=== PATIENT | female | born 1990 | race Caucasian/White ===

== ENCOUNTER → 2020-12-12 09:45 | Outpatient (BNVA) | payer OTHER, SELFPAY | PROVIDERS: Family Provider Family Medicine; PCP Family Medicine; Visit Provider Nurse Practitioner Women's Health | DX: Z01.419 Encounter for gynecological examination (general) (routine) without abnormal findings (principal); Z78.9 Other specified health status | CPT/HCPCS: 86762; 86787; 88175 ==

== ENCOUNTER 2021-04-04 08:24 | Outpatient (CLI) | payer SELFPAY ==
--- NOTE | 2021-04-04 08:32 | US_ITS ---
WS: [id number] ULTRASOUND PELVIS TECHNIQUE: Transvaginal. CLINICAL INFORMATION: ENDOMETRIAL THICKNESS LMP: : No. COMPARISON: None. FINDINGS: Cervix is long and closed. Uterus Orientation: Anteverted. Size: 6.8 x 3.3 x 4.5 cm Masses: None. Cervix: Normal. Endometrium: Small amount of fluid in the endometrial canal. Endometrium thickness: 0.4 cm. Adnexa: Left ovarian cyst measuring 2.1 x 1.9 x 1.3 cm Right ovary size: 3.5 x 1.9 x 3.3 cm. Left ovary size: 3.3 x 2.4 x 2.6 cm. 8 left ovarian follicles. 12 right ovarian follicles. Free fluid: None. Other findings: None. US/US transvaginal [id number] IMPRESSION: 1. Endometrium measures 4.1 mm. Small amount of fluid in the endometrial canal . 2. 8 LEFT OVARIAN FOLLICLES. 12 RIGHT OVARIAN FOLLICLES. 3. LARGEST LEFT OVARIAN FOLLICLE MEASURES 7.4 X 8.2 X 5.[address] OVARIAN CY ST MEASURES 2.1 X 1.9 X 1.3 CM 4. LARGEST RIGHT OVARIAN FOLLICLE MEASURES 8.8 X 5.1 8.9 MM
[2021-04-04 12:54] LABS: Estradiol. 55.3 pg/mL; Luteinizing Hormone 2.2 mIU/mL (0.5-41.7); Progesterone 0.214 ng/mL
== END 2021-04-04 08:25 | disposition home or self-care (01) ==
LOC: US 08:28
PROVIDERS: PCP Family Medicine; Visit Provider Obstetrics & Gynecology Reproductive Endocrinology
DX: Z31.9 Encounter for procreative management, unspecified (principal)
CPT/HCPCS: 36415; 76830; 82670; 83002; 84144; 84702

== ENCOUNTER 2021-04-11 07:58 | Outpatient (CLI) | payer SELFPAY ==
--- NOTE | 2021-04-11 08:09 | US_ITS ---
WS: [id number] TRANSVAGINAL PELVIC ULTRASOUND HISTORY: FOLLICLES COMPARISON: None available. Uterus: 7.4 cm x 4.2 cm x 3.0 cm. Normal size anteverted uterus. No fibroid or mass. Endometrium: 0.6 cm. Normal trilaminar appearance of the endometrium. There is a small amount of flui d along the endometrial canal. Right ovary: 3.4 cm x 2.4 cm x 1.9 cm. Normal size ovary with numerous small follicles. The largest f ollicle measures 1.6 x 1.4 x 1.6 cm. There are greater than 10 follicles present. Left ovary: 3.1 cm x 1.8 cm x 2.4 cm. Normal size ovary with multiple follicles. Greater than 10 foll icles present. The largest follicle measures 0.7 x 0.7 x 0.7 cm. No free fluid. US/US transvaginal [id number] IMPRESSION: 1. Trilaminar endometrium. 2. Multiple follicles RIGHT ovary with the largest measuring 1.6 x 1.4 x 1.6 c m. 3. Multiple follicles LEFT ovary with the largest measuring 0.7 x 0.7 x 0.7 cm .
[2021-04-11 10:02] LABS: Luteinizing Hormone 2.5 mIU/mL (0.5-41.7); Progesterone 0.172 ng/mL
[2021-04-11 11:19] LABS: Estradiol. 135.4 pg/mL
== END 2021-04-11 07:59 | disposition home or self-care (01) ==
PROVIDERS: PCP Family Medicine; Visit Provider Obstetrics & Gynecology Reproductive Endocrinology
DX: Z31.9 Encounter for procreative management, unspecified (principal)
CPT/HCPCS: 36415; 76830; 82670; 83002; 84144

== ENCOUNTER 2021-04-16 09:03 | Outpatient (CLI) | payer SELFPAY ==
[2021-04-16 12:38] LABS: Estradiol 299.5 pg/mL; Progesterone 1.19 ng/mL
== END 2021-04-16 09:04 | disposition home or self-care (01) ==
PROVIDERS: PCP Family Medicine; Visit Provider Obstetrics & Gynecology Reproductive Endocrinology
DX: Z31.9 Encounter for procreative management, unspecified (principal)
CPT/HCPCS: 36415; 82670; 83002; 84144

== ENCOUNTER 2021-04-18 08:07 | Outpatient (CLI) | payer SELFPAY ==
--- NOTE | 2021-04-18 08:30 | US_ITS ---
WS: [id number] ULTRASOUND PELVIS TECHNIQUE: Transvaginal. CLINICAL INFORMATION: FOLLICLES LMP: April 02, 2021 : No. COMPARISON: April 16, 2021 FINDINGS: Uterus Orientation: Anteverted. Size: 7.7 x 3.8 x 4.2 cm Masses: None. Cervix: Normal. Endometrium: Trilaminar endometrium Endometrium thickness: 10.6 mm. Adnexa: Normal. Right ovary size: 3.5 x 2.1 x 2.5 cm. Left ovary size: 2.7 x 2.0 x 2.1 cm. Numerous bilateral ovarian follicles. 7 right-sided follicles and 7 left-sided follicles measured. Largest right-sided follicle measures 1.1 x 1.7 x 1.5 cm Largest left-sided follicle measures 0.8 x 0.7 x 0.8 cm Free fluid: None. Other findings: None. US/US transvaginal [id number] IMPRESSION: 1. Endometrium measures 10.6 mm 2. Largest right-sided follicle measures 1.1 x 1.7 x 1.5 cm 3. Largest left-sided follicle measures 0.8 x 0.7 x 0.8 cm 4. Numerous smaller peripheral follicles measured bilaterally
[2021-04-18 10:25] LABS: Estradiol 49.9 pg/mL; Luteinizing Hormone 4.3 mIU/mL (0.5-41.7); Progesterone 18.92 ng/mL
== END 2021-04-18 08:08 | disposition home or self-care (01) ==
LOC: RAD 08:16
PROVIDERS: PCP Family Medicine; Visit Provider Obstetrics & Gynecology Reproductive Endocrinology
DX: Z31.9 Encounter for procreative management, unspecified (principal); N83.02 Follicular cyst of left ovary; N83.01 Follicular cyst of right ovary
CPT/HCPCS: 36415; 76830; 82670; 83002; 84144

== ENCOUNTER 2021-04-29 08:01 | Outpatient (CLI) | payer SELFPAY ==
[2021-04-29 08:59] LABS: Estradiol 174.2 pg/mL
== END 2021-04-29 08:02 | disposition home or self-care (01) ==
PROVIDERS: PCP Family Medicine; Visit Provider Obstetrics & Gynecology Reproductive Endocrinology
DX: Z31.9 Encounter for procreative management, unspecified (principal)
CPT/HCPCS: 36415; 82670; 84144

== ENCOUNTER 2021-05-06 08:39 | Outpatient (CLI) | payer SELFPAY ==
[2021-05-06 09:33] LABS: Estradiol 53.8 pg/mL; Progesterone 9.19 ng/mL
== END 2021-05-06 08:40 | disposition home or self-care (01) ==
PROVIDERS: PCP Family Medicine; Visit Provider Obstetrics & Gynecology Reproductive Endocrinology
DX: Z31.9 Encounter for procreative management, unspecified (principal)
CPT/HCPCS: 82670; 84144; 84702

== ENCOUNTER 2021-05-10 08:52 | Outpatient (CLI) | payer SELFPAY ==
[2021-05-10 09:46] LABS: Estradiol 56.1 pg/mL; Luteinizing Hormone 3.3 mIU/mL (0.5-41.7); Progesterone 0.116 ng/mL
== END 2021-05-10 08:53 | disposition home or self-care (01) ==
LOC: LAB 08:57
PROVIDERS: PCP Family Medicine; Visit Provider Obstetrics & Gynecology Reproductive Endocrinology
DX: Z31.9 Encounter for procreative management, unspecified (principal)
CPT/HCPCS: 36415; 82670; 83002; 84144

== ENCOUNTER 2021-05-22 07:25 | Outpatient (CLI) | payer SELFPAY ==
[2021-05-22 08:41] LABS: Estradiol 174.7 pg/mL; Luteinizing Hormone 9.4 mIU/mL (0.5-41.7); Progesterone 0.333 ng/mL
== END 2021-05-22 07:26 | disposition home or self-care (01) ==
PROVIDERS: PCP Family Medicine; Visit Provider Obstetrics & Gynecology Reproductive Endocrinology
DX: Z31.9 Encounter for procreative management, unspecified (principal)
CPT/HCPCS: 36415; 82670; 83002; 84144

== ENCOUNTER 2021-05-28 07:02 | Outpatient (CLI) | payer SELFPAY ==
[2021-05-28 11:09] LABS: Estradiol 199.9 pg/mL; Luteinizing Hormone 19.8 mIU/mL (0.5-41.7); Progesterone 0.121 ng/mL
== END 2021-05-28 07:03 | disposition home or self-care (01) ==
LOC: LAB 07:13
PROVIDERS: PCP Family Medicine; Visit Provider Obstetrics & Gynecology Reproductive Endocrinology
DX: Z31.9 Encounter for procreative management, unspecified (principal)
CPT/HCPCS: 36415; 82670; 83002; 84144

== ENCOUNTER 2021-06-11 09:08 | Outpatient (CLI) | payer SELFPAY | END 2021-06-11 09:09 | disposition home or self-care (01) | LOC: LAB 09:11 | PROVIDERS: PCP Family Medicine; Visit Provider Obstetrics & Gynecology Reproductive Endocrinology | DX: Z31.9 Encounter for procreative management, unspecified (principal) | CPT/HCPCS: 82670; 84144 ==

== ENCOUNTER 2021-06-18 08:34 | Outpatient (CLI) | payer SELFPAY ==
[2021-06-18 10:20] LABS: Estradiol 147.5 pg/mL; Progesterone 24.29 ng/mL
== END 2021-06-18 08:35 | disposition home or self-care (01) ==
PROVIDERS: PCP Family Medicine; Visit Provider Obstetrics & Gynecology Reproductive Endocrinology
DX: Z31.9 Encounter for procreative management, unspecified (principal)
CPT/HCPCS: 36415; 82670; 84144; 84702

== ENCOUNTER 2021-07-23 07:57 | Outpatient (CLI) | payer SELFPAY ==
[2021-07-23 08:56] LABS: Estradiol 39.8 pg/mL; Luteinizing Hormone 3.8 mIU/mL (0.5-41.7); Progesterone 0.179 ng/mL
== END 2021-07-23 07:58 | disposition home or self-care (01) ==
LOC: LAB 08:02
PROVIDERS: PCP Family Medicine; Visit Provider Obstetrics & Gynecology Reproductive Endocrinology
DX: Z31.9 Encounter for procreative management, unspecified (principal)
CPT/HCPCS: 36415; 82670; 83002; 84144; 84702

== ENCOUNTER 2021-08-07 07:27 | Outpatient (CLI) | payer SELFPAY ==
[2021-08-07 08:15] LABS: Estradiol 113.2 pg/mL; Luteinizing Hormone 10.2 mIU/mL (0.5-41.7); Progesterone 0.533 ng/mL
== END 2021-08-07 07:28 | disposition home or self-care (01) ==
LOC: LAB 07:32
PROVIDERS: PCP Family Medicine; Visit Provider Obstetrics & Gynecology Reproductive Endocrinology
DX: Z31.9 Encounter for procreative management, unspecified (principal)
CPT/HCPCS: 36415; 82670; 83002; 84144

== ENCOUNTER → 2021-08-20 08:09 | Outpatient (BNVA) | payer OTHER, SELFPAY | PROVIDERS: PCP Family Medicine; Visit Provider Nurse Practitioner Women's Health | DX: Z31.83 Encounter for assisted reproductive fertility procedure cycle (principal); Z32.00 Encounter for pregnancy test, result unknown | CPT/HCPCS: 81025 ==

== ENCOUNTER 2021-08-22 10:48 | Outpatient (CLI) | payer SELFPAY ==
[2021-08-22 12:15] LABS: Estradiol 64.8 pg/mL; Progesterone 2.46 ng/mL
== END 2021-08-22 10:49 | disposition home or self-care (01) ==
LOC: LAB 10:51
PROVIDERS: PCP Family Medicine; Visit Provider Obstetrics & Gynecology Reproductive Endocrinology
DX: Z31.9 Encounter for procreative management, unspecified (principal)
CPT/HCPCS: 36415; 82670; 84144

== ENCOUNTER 2021-09-30 10:09 | Outpatient (CLI) | payer SELFPAY ==
[2021-09-30 11:21] LABS: Estradiol 114.4 pg/mL; Luteinizing Hormone 6.2 mIU/mL (0.5-41.7); Progesterone 0.665 ng/mL
== END 2021-09-30 10:10 | disposition home or self-care (01) ==
PROVIDERS: PCP Family Medicine; Visit Provider Obstetrics & Gynecology Reproductive Endocrinology
DX: Z13.9 Encounter for screening, unspecified (principal)
CPT/HCPCS: 36415; 82670; 83002; 84144; 84702

== ENCOUNTER 2021-10-08 14:06 | Outpatient (CLI) | payer SELFPAY ==
[2021-10-08 15:09] LABS: Estradiol 172.7 pg/mL; Follicle Stimulating Hormone 5.1 mIU/mL; Luteinizing Hormone 8.3 mIU/mL (0.5-41.7); Progesterone 0.126 ng/mL
== END 2021-10-08 14:07 | disposition home or self-care (01) ==
PROVIDERS: PCP Family Medicine; Visit Provider Obstetrics & Gynecology Reproductive Endocrinology
DX: Z31.9 Encounter for procreative management, unspecified (principal)
CPT/HCPCS: 36415; 82670; 83001; 83002; 84144

== ENCOUNTER 2021-10-25 07:37 | Outpatient (CLI) | payer SELFPAY ==
[2021-10-25 08:23] LABS: Estradiol 169.4 pg/mL; Progesterone 28.67 ng/mL
== END 2021-10-25 07:38 | disposition home or self-care (01) ==
LOC: LAB 07:38
PROVIDERS: PCP Family Medicine; Visit Provider Obstetrics & Gynecology Reproductive Endocrinology
DX: Z31.9 Encounter for procreative management, unspecified (principal)
CPT/HCPCS: 36415; 82670; 84144

== ENCOUNTER 2021-10-31 07:56 | Outpatient (CLI) | payer SELFPAY ==
[2021-10-31 09:07] LABS: Estradiol 244.5 pg/mL; Progesterone 23.29 ng/mL
== END 2021-10-31 07:57 | disposition home or self-care (01) ==
LOC: LAB 07:57
PROVIDERS: PCP Family Medicine; Visit Provider Obstetrics & Gynecology Reproductive Endocrinology
DX: Z31.9 Encounter for procreative management, unspecified (principal)
CPT/HCPCS: 36415; 82670; 84144; 84702

== ENCOUNTER 2021-11-07 09:53 | Outpatient (CLI) | payer SELFPAY | END 2021-11-07 09:54 | disposition home or self-care (01) | LOC: LAB 09:54 | PROVIDERS: PCP Family Medicine; Visit Provider Obstetrics & Gynecology Reproductive Endocrinology | DX: Z31.9 Encounter for procreative management, unspecified (principal) | CPT/HCPCS: 36415; 84144; 84702 ==

== ENCOUNTER 2021-11-14 06:59 | Outpatient (CLI) | payer SELFPAY ==
--- NOTE | 2021-11-14 07:03 | US_ITS ---
WS: [id number] ULTRASOUND EARLY TECHNIQUE: Transvaginal sonography CLINICAL INFORMATION: DATING AND SIZE OF IUP WITH DOCUMENTATION OF HEARTBEAR LMP: 10/04/2021 Beta hCG: Unknown. COMPARISON: October 08, 2021 FINDINGS: UTERUS AND GESTATIONAL SAC Intrauterine gestations: Intrauterine gestation with cardiac activity and pole. Yolk sac is visualized. Cervix is long a nd closed. Estimated gestational age: 6w3d Estimated date of delivery July 07, 2022 Yolk sac: 0.4 cm. Sarah Ann rump length (CRL): 0.6 cm. heart motion: 112 BPM. Subchorionic hemorrhage: None. OVARIES Right ovary: Normal. Left ovary: Corpus luteum cyst FREE FLUID None. US/US OB transvaginal [id number] IMPRESSION: 1. Single live intrauterine with cardiac activity. 2. Estimated gestational age; 6w3d 3. Normal adnexa. 4. No free fluid in the cul-de-sac.
[2021-11-14 08:06] LABS: Estradiol 629.6 pg/mL; Progesterone 29.28 ng/mL
== END 2021-11-14 07:00 | disposition home or self-care (01) ==
PROVIDERS: PCP Family Medicine; Visit Provider Obstetrics & Gynecology Reproductive Endocrinology
DX: Z31.9 Encounter for procreative management, unspecified (principal); Z3A.01 Less than 8 weeks gestation of pregnancy
CPT/HCPCS: 76817; 82670; 84144; 84702

== ENCOUNTER 2021-11-21 08:56 | Outpatient (CLI) | payer SELFPAY ==
[2021-11-21 09:52] LABS: Progesterone 20.47 ng/mL
== END 2021-11-21 08:57 | disposition home or self-care (01) ==
PROVIDERS: PCP Family Medicine; Visit Provider Obstetrics & Gynecology Reproductive Endocrinology
DX: Z31.9 Encounter for procreative management, unspecified (principal)
CPT/HCPCS: 36415; 82670; 84144; 84702

== ENCOUNTER 2021-12-05 08:36 | Outpatient (CLI) | payer SELFPAY ==
--- NOTE | 2021-12-05 08:45 | US_ITS ---
WS: [id number] EARLY OBSTETRICAL ULTRASOUND (<14 WEEKS). HISTORY: DATING SIZE OF IUP W/DOCUMENTATION OF FETEAL HEARTBEAT COMPARISON: 11/21/2021 Single intrauterine gestational sac is identified. Cardiac activity at 164 BPM. Osgood-rump length unique sures 2.8 cm which corresponds to a gestation of 9w5d. Normal-appearing yolk sac and amnion demonstra jesús. No subchorionic hemorrhage. No free fluid. Normal size ovaries with no mass. Cervix is closed. US/US OB <=14 wk fetus w transvag IMPRESSION: 1. Single intrauterine gestation of 9 weeks 5 days with an EDC of 07/05/2022. A ppropriate growth since prior ultrasound of 11/21/2021. 2. Normal cardiac activity.
[2021-12-05 10:23] LABS: Progesterone 26.78 ng/mL
== END 2021-12-05 08:37 | disposition home or self-care (01) ==
LOC: RAD 08:40
PROVIDERS: PCP Family Medicine; Visit Provider Obstetrics & Gynecology Reproductive Endocrinology
DX: Z36.87 Encounter for antenatal screening for uncertain dates (principal); Z3A.09 9 weeks gestation of pregnancy; Z31.9 Encounter for procreative management, unspecified
CPT/HCPCS: 36415; 76801; 76817; 82670; 84144

== ENCOUNTER 2022-06-30 05:22 | Inpatient (IN) | payer OTHER, SELFPAY ==
[2022-06-30] VITALS (29 sets, daily range): BP systolic 87–136; BP diastolic 50–86; PULSE 54–104; TEMP 36.4; O2SAT 97–100; BMI 35.5
[2022-06-30] MEDS: lactated ringers 1,000 ML 999 ML IV (05:56)
[2022-06-30 06:06] LABS: Basophils # 0.1 10^3/uL (0.0-0.1); Basophils % 0.6 %; Eosinophils # 0.1 10^3/uL (0.0-0.8); Eosinophils % 1.2 %; Hematocrit 35.6 % (37.0-47.0); Hemoglobin 11.4 g/dL (11.5-15.3); Lymphocytes # 2.4 10^3/uL (0.8-4.8); Lymphocytes % 22.9 %; Mean Corpuscular Hemoglobin 29.2 pg (28.0-34.0); Mean Platelet Volume 11.6 fL (7.4-10.4); Monocytes # 0.9 10^3/uL (0.2-0.9); Monocytes % 8.8 %; Neutrophils # 6.75 10^3/uL (1.8-7.7); Neutrophils % 65.8 %; Nucleated Red Blood Cells % 0 %; Platelet Count 223 10^3/cmm (130-400); Red Blood Count 3.91 10^6/uL (4.1-5.3); Red Cell Distribution Width 13.6 % (12.1-15.1); White Blood Count 10.3 10^3/uL (4.0-10.0)
[2022-06-30] MEDS: famotidine 20 mg/2 mL INJ IVP (06:43)
[2022-06-30] MEDS: citric acid-sodium citrate 30 mL UDC PO (06:43)
[2022-06-30] MEDS: metoclopramide 5 mg/mL SDV 2 mL 10 MG IVP (06:43)
--- NOTE | 2022-06-30 06:46 | ANES.PREANE2 ---
Pre-Anesthetic Assessment Height/Weight: Height 1.68 m Weight 99.79 kg Pulse BP O2 Del Method 67 111/69 06/30/22 06:22 06/30/22 06:22 06/30/22 05:34 Preop Diagnosis: IUP Operation Date: 06/30/22 07:30 Proposed Procedures p Section Repeat(Not Applicable) - Karley Thacker MD Familial anesthetic complications: None Was Beta Tomás taken within 24 hours: N/A Was Clonidine taken within 24 hours: N/A Last intake: > 8 hrs Social No alcohol and No tobacco Exam alert, oriented x 3, clear to auscultation bilaterally and regular rate & rhythm Airway Mallampati: Class IV Dentition: full Anesthetic Plan ASA status: 2 Anesthesia: Regional (specify below) (spinal) Risk of > 500 ml blood loss (7ml/kg in children): Yes, adequate IV access and fluids planned Medications/Allergies Home Medications Medication Instructions Recorded Confirmed Last Taken Type multivitamin 1 tab PO DAILY 12/12/20 06/30/22 06/29/22 History Allergies Allergy/AdvReac Type Severity Reaction Status Date / Time codeine Allergy Mild Vomiting Verified 08/20/21 08:17 amoxicillin Allergy Rash Verified 08/20/21 08:17 [facility] Anesthesia Medical History Patient denies medical problems Denies history of: High Blood Pressure, Diabetes, Heart, Lung, Liver, Kidney, Thyroid, Bleeding Problems, Clotting Problems Surgical History History of delivery (~2011) Status post surgery Reconstructive ear surgery as a child Family History Grandmother Breast cancer maternal-- dx age unknown Diabetes maternal Grandfather Diabetes maternal Mother Diabetes Hypertension Unknown No problems noted. Denies family history of Colon cancer Ovarian cancer Heart disease Hypercholesteremia Uterine cancer Thyroid disease Stroke Female Reproductive History : 2 Data Anesthesia : 06/30/22 05:44 Short CBC 06/30/22 Range/Units 05:44 WBC 10.3 H (4.0-10.0) 10^3/uL Hgb 11.4 L (11.5-15.3) g/dL Hct 35.6 L (37.0-47.0) % MCV 91.0 (81-99) fl Plt Count 223 (130-400) 10^3/cmm Neut % (Auto) 65.8 % Neut # (Auto) 6.75 (1.8-7.7) 10^3/uL Cardiac Studies: No Data to Display
--- NOTE | 2022-06-30 08:55 | PM.OPHPUD ---
Labor & Delivery H&P Update Date of Procedure: June 30, 2022 Date H&P Performed: 06/26/22 Admission Diagnosis: Preop diagnosis: IUP Planned procedure: Operation Date: 06/30/22 07:30 Proposed Procedures p Section Repeat(Not Applicable) - Karley Thacker MD
--- NOTE | 2022-06-30 08:55 | PM.OP ---
Operative Report Date of procedure: June 30, 2022 Pre-op diagnosis: Preop Diagnosis IUP at 39 weeks 1 day gestation Repeat section Gestational carrier Procedure done: Repeat low transverse section Specimens removed/disposition: Vertex male weight 7 pounds 7 ounces Apgars 8 and 9 Surgeon: Karley Thacker MD Estimated blood loss: 500 IV fluids: 700 Urine output: 50 Complications: Brief uterine inversion Procedure: After informed consent the patient was taken to the OR where spinal anesthesia was administered. She was prepped and draped in normal sterile fashion in dorsal supine position with a left lateral tilt. Her prior keloid scar was removed sharply using a blade and then the incision was carried down to the fascia sharply. The fascial incision was extended laterally using the Mayos. The fascia was grasped with [place] clamps and the underlying rectus muscles were dissected off taking care to avoid injury to the underlying tissue. The peritoneum was entered bluntly using a hemostat. The peritoneal incision site was manually stretched. The bladder blade was then inserted. The vesicouterine peritoneum was identified and entered sharply using the Metzenbaums. The bladder flap was then created digitally. The bladder blade was then reinserted. Uterine incision was made in a transverse fashion in the lower uterine segment. Amniotic rupture of membranes was performed using an Allis clamp and clear fluid was noted. The was delivered in vertex presentation with simultaneous delivery of head and body. The was suctioned at delivery and the cord was clamped and cut. The infant was handed to the waiting pediatric nurse. Fundal pressure and traction on the umbilical cord was used to deliver the placenta but the uterus very easily inverted. I manually corrected the uterus to normal anatomical position and then delivered the placenta using only fundal pressure. A dry sponge was used to clear the uterus of clots and debris and the uterine incision was then repaired using 0 chromic in a running locked fashion. A second layer of the same suture was used in an imbricating manner. There was a small amount of bleeding at the midline and a [id number] suture of 0 chromic was used with good hemostasis. The uterus was then returned to the abdomen. Irrigation was used to clear the gutters of clots and debris and the uterine incision was reinspected for hemostasis. The peritoneum was reapproximated using 4-0 Vicryl in a running fashion. The fascia was then reapproximated using 0 Vicryl in a running fashion. The subcutaneous tissue was irrigated and any small bleeders were coagulated using the Bovie. The subcutaneous tissue was reapproximated using 4-0 Vicryl in a running fashion. The skin was then reapproximated using gildardo. A pressure bandage was applied and patient went to recovery in good condition Sponge instrument and needle counts were correct.
[2022-06-30] MEDS: ondansetron 2 mg/ML SDV 2 mL 4 MG IVP (09:27)
[2022-06-30] MEDS: ketorolac 30 mg/mL INJ IVP ×3 (09:31→22:14)
[2022-06-30] MEDS: dextrose 5%-lactated ringers 1,000 ML 125 ML IV (11:56)
--- NOTE | 2022-06-30 13:08 | ANE.PACU2 ---
Inpatient post-anesthesia follow up: Airway intact: Yes Vital signs: Temperature 97.6 F Pulse Rate 74 Respiratory Rate Blood Pressure 95/52 Pulse Oximetry 98 Oxygen Delivery Me thod Room Air Oxygen Flow Rate Fraction of Inspir ed Oxygen Hydration adequate: Yes Nausea and vomiting: No Pain level: 2 Mental status: Baseline
[2022-06-30 23:21] LABS: Hematocrit 29.3 % (37.0-47.0); Hemoglobin 9.3 g/dL (11.5-15.3); Mean Corpuscular HGB Conc 31.7 g/dL (30.0-36.0); Mean Corpuscular Hemoglobin 29.5 pg (28.0-34.0); Mean Platelet Volume 11.4 fL (7.4-10.4); Platelet Count 194 10^3/cmm (130-400); Red Blood Count 3.15 10^6/uL (4.1-5.3); Red Cell Distribution Width 13.8 % (12.1-15.1); White Blood Count 11.4 10^3/uL (4.0-10.0)
[2022-07-01] MEDS: ketorolac 30 mg/mL INJ IVP (04:10)
[2022-07-01 04:11] VITALS: BP 115/71; PULSE 65
[2022-07-01 04:12] VITALS: TEMP 36.3
[2022-07-01] MEDS: prenatal vitamin Capsule 1 CAP PO (09:33)
[2022-07-01] MEDS: docusate sodium 100 mg Capsule PO ×2 (09:33→18:53)
[2022-07-01] MEDS: ferrous sulfate EC 325 mg Tablet PO ×2 (09:34→20:19)
[2022-07-01 09:36] VITALS: BP 111/71; PULSE 71; TEMP 36.3
[2022-07-01] MEDS: ibuprofen 800 mg tablet PO ×2 (12:45→20:19)
[2022-07-01] MEDS: HYDROcodone-acetaminophen 5-325 mg Tablet PO ×2 (12:45→18:52)
--- NOTE | 2022-07-01 13:05 | PM.PN ---
Subjective Subjective: Ambulating, tolerating a regular diet, average vaginal bleeding that comes and goes. Vitals/I&O/Wt Last Vital Signs Temp 97.3 F L 07/01/22 09:36 Pulse 71 07/01/22 09:36 BP 111/71 07/01/22 09:36 Pulse Ox 98 06/30/22 09:10 O2 Del Method 06/30/22 08:40 06/30/22 07/01/22 07/01/22 22:59 06:59 14:59 Intake Total 1000 / 1050 250 / 1300 Output Total 700 / 1100 300 / 1400 Balance 300 / -50 -50 / -100 Weight last 48 hrs Weight 99.79 kg Physical Exam Narrative: Alert and oriented, sitting up in bed, heart regular rate and rhythm, lungs clear to auscultation bilaterally, abdomen is soft with appropriate postoperative tenderness, incision is clean dry and intact with gildardo in place. Extremities have no calf tenderness, no edema. Urinary Catheter Management: Sousa: Cath Placed During This Visit: yes, but has since been removed by the nurse Reason for Continuing Indwelling Catheter: Decision to DC Catheter Urinary Catheter Date of Insertion: 06/30/22 Urinary Catheter Time of Insertion: 07:35 Date Urinary Catheter Removed: 06/30/22 Time Urinary Catheter Discontinued: 22:00 Data : 06/30/22 22:00 A&P Assessment and plan (1) Status post repeat low transverse section: Continue routine postoperative care Status: Acute Attestations Medical Necessity Statement*: Routine postoperative and care Coding Level of Care Code Acute Center Medical Specialist for Chelsea Conley Diagnoses Status post repeat low transverse section Z98.891
[2022-07-01 17:00] VITALS: BP 114/77; PULSE 77; TEMP 36.7
[2022-07-01 22:09] VITALS: BP 104/66; PULSE 80; TEMP 37.1
[2022-07-02] MEDS: HYDROcodone-acetaminophen 5-325 mg Tablet PO ×3 (00:24→13:19)
[2022-07-02 05:20] VITALS: BP 101/72; PULSE 74; RESP 16; TEMP 36.8
[2022-07-02] MEDS: docusate sodium 100 mg Capsule PO (08:20)
[2022-07-02] MEDS: prenatal vitamin Capsule 1 CAP PO (08:20)
[2022-07-02] MEDS: ferrous sulfate EC 325 mg Tablet PO (08:20)
[2022-07-02] MEDS: ibuprofen 800 mg tablet PO ×2 (08:20→13:19)
--- NOTE | 2022-07-02 12:33 | PM.DCS ---
Discharge Providers Date of Admission: 06/30/22 05:22 Date of Discharge: July 02, 2022 Attending Provider at Admission: Karley Thacker MD Attending Provider at Discharge: Karley Thacker MD Primary Care Provider: Karley Thacker MD Diagnoses at Discharge Discharge Diagnosis (1) Status post repeat low transverse section: Status: Acute Hospital Course Hospital Course This is a 31-year-old G2 now P2 who was admitted for repeat section. She was a gestational carrier. There were no problems during the delivery or . She was ambulating, tolerating a regular diet, had good pain control and was comfortable with discharge home. Physical Exam Narrative: Alert and oriented, sitting up in bed, heart regular rate and rhythm, lungs clear to auscultation bilaterally, abdomen is soft and nontender, incision is clean dry and intact, extremities have 1+ edema but no calf tenderness Urinary Catheter Management: Sousa: Cath Placed During This Visit: yes, but has since been removed by the nurse Reason for Continuing Indwelling Catheter: Decision to DC Catheter Urinary Catheter Date of Insertion: 06/30/22 Urinary Catheter Time of Insertion: 07:35 Date Urinary Catheter Removed: 06/30/22 Time Urinary Catheter Discontinued: 22:00 Discharge Data Studies Completed and Pending Laboratory Results WBC 11.4 10^3/uL (4.0-10.0) H 06/30/22 22:00 RBC 3.15 10^6/uL (4.1-5.3) L 06/30/22 22:00 Hgb 9.3 g/dL (11.5-15.3) L 06/30/22 22:00 Hct 29.3 % (37.0-47.0) L 06/30/22 22:00 MCV 93.0 fl (81-99) 06/30/22 22:00 MCH 29.5 pg (28.0-34.0) 06/30/22 22:00 MCHC 31.7 g/dL (30.0-36.0) 06/30/22 22:00 RDW 13.8 % (12.1-15.1) 06/30/22 22:00 Plt Count 194 10^3/cmm (130-400) 06/30/22 22:00 MPV 11.4 fL (7.4-10.4) H 06/30/22 22:00 Neut % (Auto) 65.8 % 06/30/22 05:44 Lymph % (Auto) 22.9 % 06/30/22 05:44 Miner % (Auto) 8.8 % 06/30/22 05:44 Eos % (Auto) 1.2 % 06/30/22 05:44 Baso % (Auto) 0.6 % 06/30/22 05:44 Neut # (Auto) 6.75 10^3/uL (1.8-7.7) 06/30/22 05:44 Lymph # (Auto) 2.4 10^3/uL (0.8-4.8) 06/30/22 05:44 Miner # (Auto) 0.9 10^3/uL (0.2-0.9) 06/30/22 05:44 Eos # (Auto) 0.1 10^3/uL (0.0-0.8) 06/30/22 05:44 Baso # (Auto) 0.1 10^3/uL (0.0-0.1) 06/30/22 05:44 Nucleated RBC % (auto) 0 % 06/30/22 05:44 Nucleated RBCs # 0.0 /100WBC 06/30/22 05:44 Blood Type O Positive 06/30/22 06:38 Rho(D) Type Positive 06/30/22 06:38 Antibody Screen Positive 06/30/22 06:38 Antibody Identification Cold Antibody 06/30/22 06:38 Vitals Last Vital Signs Temp 98.2 F 07/02/22 05:20 Pulse 74 07/02/22 05:20 Resp 16 07/02/22 05:20 BP 101/72 07/02/22 05:20 Pulse Ox 98 06/30/22 09:10 O2 Del Method 06/30/22 08:40 Discharge Plan Discharge Patient Disposition: Home Condition: Stable Prescriptions: New docusate sodium 100 mg Capsule 100 mg PO BID Qty: 60 0RF hydrocodone-acetaminophen 5-325 mg Tablet 1 - 2 tab PO Q4H PRN (Reason: Moderate To Severe Pain) Qty: 12 0RF Continued multivitamin Tablet 1 tab PO DAILY Discharge Orders: Discharge Order (Routine); Ordered 07/02/22 Ordered By: Karley Thacker Referrals: Karley Thacker MD [Primary Care Provider] - 1 week Discharge Diet: Usual diet Discharge Activity: Limit activity as instructed Patient Instructions: Depression (DC), Bleeding (DC), Preeclampsia and Eclampsia After Delivery (GEN), OB - Grant/Kedar, OB Discharge Report, OB Food/Drug Interaction Guide, OB Care at Home, Opioid Safety, OB Home Care, Abnormal Bleeding Discharge Attestations Time Spent in Discharge Care*: less than 30 min Quality Metrics Clinical Quality Measures [ No reported AMI, CVA or VTE this stay] Coding Level of Care Code Acute Chg FW DC note Diagnoses Status post repeat low transverse section Z98.891
[2022-07-02] MEDS: lanolin oint 7 gm 1 APPLIC TOPICAL (13:24)
[2022-07-02 13:25] VITALS: BP 128/70; PULSE 71; RESP 16; TEMP 36.2
[2022-07-02 13:26] VITALS: BP 128/70; PULSE 71
== END 2022-07-02 13:50 | disposition home or self-care (01) | DRG 788 ==
PROVIDERS: Admitting Provider Family Medicine; PCP Family Medicine; Visit Provider Family Medicine
PROC: 10D00Z1 Extraction of Products of Conception, Low, Open Approach (ICD-10-PCS; CPT 59514; principal; 2022-06-30 07:30)
DX: O34.211 Maternal care for low transverse scar from previous cesarean delivery (principal); Z3A.39 39 weeks gestation of pregnancy; Z37.0 Single live birth; Z33.3 Pregnant state, gestational carrier
CPT/HCPCS: 36415; 51702; 59409; 85025; 85027; 86850; 86870; 86900; J1885; J2274; J2370; J2405; J2765; J3490; J7030

== ENCOUNTER 2023-06-22 07:18 | Outpatient (CLI) | payer SELFPAY ==
--- NOTE | 2023-06-22 07:43 | US_ITS ---
WS: [id number] US transvaginal [id number] HISTORY: PROCREATIVE MANAGEMENT COUNSELING FOR ACTING SURROGATE COMPARISON: None available. Uterus: 7.9 cm x 3.5 cm x 3.7 cm. Normal size anteverted uterus. No fibroid or mass. Tiny foci of increased echogenicity along the cervix may be mucus filled cysts. No associated mass or increased vascularity. Endometrium: 0.7 cm. Normal. Right ovary: 2.8 cm x 2.3 cm x 1.4 cm. Normal size and vascularity, no cystic or solid masses. Small follicles. Left ovary: 1.8 cm x 2.3 cm x 2.3 cm. Normal size and vascularity, no cystic or solid masses. Small f ollicles. No free fluid in the cul-de-sac. US/US transvaginal [id number] IMPRESSION: Normal transvaginal pelvic ultrasound.
[2023-06-22 11:56] LABS: Progesterone 0.218 ng/mL
== END 2023-06-22 07:19 | disposition home or self-care (01) ==
PROVIDERS: PCP Family Medicine; Visit Provider Obstetrics & Gynecology Reproductive Endocrinology
DX: Z31.7 Encounter for procreative management and counseling for gestational carrier (principal)
CPT/HCPCS: 36415; 76830; 82670; 84144

== ENCOUNTER 2023-06-25 07:22 | Outpatient (CLI) | payer OTHER, SELFPAY ==
[2023-06-25 08:22] LABS: Estradiol 132.6 pg/mL
== END 2023-06-25 07:23 | disposition home or self-care (01) ==
PROVIDERS: PCP Family Medicine; Visit Provider Obstetrics & Gynecology Reproductive Endocrinology
DX: Z31.7 Encounter for procreative management and counseling for gestational carrier (principal)
CPT/HCPCS: 36415; 82670

== ENCOUNTER 2023-06-29 07:05 | Outpatient (CLI) | payer OTHER, SELFPAY ==
[2023-06-29 08:06] LABS: Estradiol 215.3 pg/mL; Progesterone 0.113 ng/mL
== END 2023-06-29 07:06 | disposition home or self-care (01) ==
PROVIDERS: PCP Family Medicine; Visit Provider Obstetrics & Gynecology Reproductive Endocrinology
DX: Z31.7 Encounter for procreative management and counseling for gestational carrier (principal)
CPT/HCPCS: 36415; 82670; 84144

== ENCOUNTER 2023-07-08 07:40 | Outpatient (CLI) | payer SELFPAY ==
--- NOTE | 2023-07-08 07:59 | US_ITS ---
WS: [id number] US transvaginal [id number] HISTORY: PROCREATIVE MANAGEMENT COUNSELING FOR SURROGATE COMPARISON: 06/22/2023 Uterus: 8.6 cm x 4.7 cm x 3.9 cm. Normal size anteverted uterus. No fibroid or mass. Endometrium: 1.5 cm. Mildly thickened heterogeneous endometrium. No increased vascularity. Right ovary: 2.5 cm x 2.6 cm x 2.7 cm. Normal size ovary. Dominant follicle measures 1.8 x 2.0 x 1.8 cm. Normal vascularity within the ovary. Left ovary: 2.7 cm x 1.8 cm x 2.4 cm. Normal size and vascularity, no cystic or solid masses. No free fluid in the cul-de-sac. IMPRESSION: 1. Mildly thickened heterogeneous endometrium at 1.5 cm. 2. Dominant RIGHT ovarian follicle with a maximum diameter of 2.0 cm.
[2023-07-08 09:39] LABS: Progesterone 0.123 ng/mL
== END 2023-07-08 07:41 | disposition home or self-care (01) ==
PROVIDERS: PCP Family Medicine; Visit Provider Obstetrics & Gynecology Reproductive Endocrinology
DX: Z31.7 Encounter for procreative management and counseling for gestational carrier (principal); R93.89 Abnormal findings on diagnostic imaging of other specified body structures
CPT/HCPCS: 36415; 76830; 84144

== ENCOUNTER 2023-07-24 07:42 | Outpatient (CLI) | payer SELFPAY | END 2023-07-24 07:43 | disposition home or self-care (01) | LOC: LAB 07:51 | PROVIDERS: PCP Family Medicine; Visit Provider Obstetrics & Gynecology Reproductive Endocrinology | DX: Z31.7 Encounter for procreative management and counseling for gestational carrier (principal) | CPT/HCPCS: 36415; 84702 ==

== ENCOUNTER 2023-08-26 07:44 | Outpatient (CLI) | payer SELFPAY ==
[2023-08-26 08:44] LABS: Estradiol 59.4 pg/mL
== END 2023-08-26 07:45 | disposition home or self-care (01) ==
PROVIDERS: PCP Family Medicine; Visit Provider Obstetrics & Gynecology Reproductive Endocrinology
DX: Z31.7 Encounter for procreative management and counseling for gestational carrier (principal)
CPT/HCPCS: 36415; 82670; 84144

== ENCOUNTER 2023-08-29 08:17 | Outpatient (CLI) | payer SELFPAY ==
[2023-08-29 09:47] LABS: Estradiol 148.3 pg/mL
== END 2023-08-29 08:18 | disposition home or self-care (01) ==
PROVIDERS: PCP Family Medicine; Visit Provider Obstetrics & Gynecology Reproductive Endocrinology
DX: Z31.7 Encounter for procreative management and counseling for gestational carrier (principal)
CPT/HCPCS: 36415; 82670; 84144

== ENCOUNTER 2023-09-01 07:22 | Outpatient (CLI) | payer SELFPAY ==
[2023-09-01 08:09] LABS: Estradiol 694.1 pg/mL
== END 2023-09-01 07:23 | disposition home or self-care (01) ==
LOC: LAB 07:30
PROVIDERS: PCP Family Medicine; Visit Provider Obstetrics & Gynecology Reproductive Endocrinology
DX: Z31.7 Encounter for procreative management and counseling for gestational carrier (principal)
CPT/HCPCS: 36415; 82670

== ENCOUNTER 2023-09-09 07:51 | Outpatient (CLI) | payer SELFPAY ==
--- NOTE | 2023-09-09 08:09 | US_ITS ---
WS: [id number] US transvaginal [id number] HISTORY: PROCREATIVE MANAGEMENT COUNSELING -GESTATIONAL SURROGATE COMPARISON: None available. Uterus: 9.9 cm x 4.6 cm x 4.5 cm. Normal size anteverted uterus. No fibroid or mass. Endometrium: 1.3 cm. Normal appearance of the endometrium. Right ovary: 2.1 cm x 2.6 cm x 1.9 cm. Normal size and vascularity, no cystic or solid masses. A few very minimal follicles within the RIGHT ovary. Left ovary: 3.2 cm x 2.5 cm x 1.4 cm. Normal size and vascularity, no cystic or solid masses. No free fluid in the cul-de-sac. IMPRESSION: 1. Normal endometrium at 1.3 cm. 2. Otherwise negative.
== END 2023-09-09 07:52 | disposition home or self-care (01) ==
LOC: RAD 07:51
PROVIDERS: PCP Family Medicine; Visit Provider Obstetrics & Gynecology Reproductive Endocrinology
DX: Z31.7 Encounter for procreative management and counseling for gestational carrier (principal)
CPT/HCPCS: 36415; 76830; 84144

== ENCOUNTER 2023-12-03 07:10 | Outpatient (CLI) | payer SELFPAY ==
[2023-12-03 08:09] LABS: Progesterone 0.254 ng/mL
== END 2023-12-03 07:11 | disposition home or self-care (01) ==
LOC: LAB 07:12
PROVIDERS: PCP Family Medicine; Visit Provider Obstetrics & Gynecology Reproductive Endocrinology
DX: Z31.7 Encounter for procreative management and counseling for gestational carrier (principal)
CPT/HCPCS: 36415; 82670; 84144

== ENCOUNTER 2023-12-08 08:53 | Outpatient (CLI) | payer SELFPAY | END 2023-12-08 08:54 | disposition home or self-care (01) | LOC: LAB 08:57 | PROVIDERS: PCP Family Medicine; Visit Provider Obstetrics & Gynecology Reproductive Endocrinology | DX: Z31.7 Encounter for procreative management and counseling for gestational carrier (principal) | CPT/HCPCS: 36415; 82670 ==

== ENCOUNTER 2023-12-11 07:52 | Outpatient (CLI) | payer SELFPAY ==
[2023-12-11 08:45] LABS: Estradiol 910.3 pg/mL
[2023-12-11 11:32] LABS: Progesterone 0.124 ng/mL
== END 2023-12-11 07:53 | disposition home or self-care (01) ==
PROVIDERS: PCP Family Medicine; Visit Provider Obstetrics & Gynecology Reproductive Endocrinology
DX: Z31.7 Encounter for procreative management and counseling for gestational carrier (principal)
CPT/HCPCS: 36415; 82670; 84144

== ENCOUNTER 2023-12-11 13:09 | Outpatient (CLI) | payer SELFPAY ==
--- NOTE | 2023-12-11 13:31 | US_ITS ---
WS: [id number] US transvaginal [id number] HISTORY: PROCREATIVE MANAGEMENT COUNSELING FOR GESTATIONAL surrogate. Request for endometrial measu rement only. COMPARISON: 09/09/2023 Uterus: 9.3 cm x 4.7 cm x 3.7 cm. Normal size anteverted uterus. No fibroid or mass. Endometrium: 0.7 cm. Normal trilaminar endometrium. Right ovary: 2.9 cm x 1.8 cm x 1.7 cm. Normal size and vascularity, no cystic or solid masses. Left ovary: 2.9 cm x 1.8 cm x 2.3 cm. Normal size and vascularity, no cystic or solid masses. No free fluid in the cul-de-sac. IMPRESSION: Trilaminar endometrium, 0.7 cm.
== END 2023-12-11 13:10 | disposition home or self-care (01) ==
LOC: RAD 13:10
PROVIDERS: PCP Family Medicine; Visit Provider Obstetrics & Gynecology Reproductive Endocrinology
DX: Z31.7 Encounter for procreative management and counseling for gestational carrier (principal)
CPT/HCPCS: 76830

== ENCOUNTER 2023-12-18 07:11 | Outpatient (CLI) | payer SELFPAY ==
--- NOTE | 2023-12-18 07:19 | US_ITS ---
WS: [id number] US transvaginal [id number] HISTORY: FOLLICULAR MONITORING COMPARISON: 12/11/2023 Uterus: 7.0 cm x 3.8 cm x 5.5 cm. Normal size anteverted uterus. No fibroid or mass. Endometrium: 1.2 cm. Normal trilaminar appearance of the endometrium. Endometrium is slightly more pr ominent and thickened as compared to 12/11/2023. Right ovary: 2.3 cm x 2.3 cm x 1.6 cm. Normal size and vascularity, no cystic or solid masses. There is several small peripheral follicles only measuring up to 2.4 mm in diameter. Left ovary: 2.8 cm x 1.9 cm x 2.5 cm. Normal size and vascularity, no cystic or solid masses. There i s several very small peripheral follicles which are poorly visualized due to their size measuring les s than 2 mm. No free fluid in the cul-de-sac. IMPRESSION: 1. Trilaminar endometrium measures 1.2 cm. 2. There are a very few small peripheral ovarian follicles. Follicles are very difficult to visualiz e. The largest measures 2.4 mm within the RIGHT ovary.
[2023-12-18 08:25] LABS: Progesterone 0.116 ng/mL
== END 2023-12-18 07:12 | disposition home or self-care (01) ==
LOC: RAD 07:11
PROVIDERS: PCP Family Medicine; Visit Provider Obstetrics & Gynecology Reproductive Endocrinology
DX: Z31.7 Encounter for procreative management and counseling for gestational carrier (principal)
CPT/HCPCS: 76830; 82670; 84144

== ENCOUNTER 2023-12-21 08:50 | Outpatient (CLI) | payer SELFPAY ==
[2023-12-21 13:33] LABS: Progesterone 0.052 ng/mL
--- NOTE | 2023-12-21 14:44 | US_ITS ---
WS: [id number] US transvaginal [id number] HISTORY: PROCREATIVE MANAGEMENT FOR PERSON ACTING SURROGATE COMPARISON: None available. Uterus: 8.3 cm x 3.8 cm x 5.3 cm. Normal size anteverted uterus. No fibroid or mass. Endometrium: 1.4 cm. Endometrium is not as well visualized on today's study. The trilaminar endometri um is no longer present. Mild thickening and heterogeneity. Neither ovary is measured. Tiny follicles. No free fluid. IMPRESSION: Endometrium measures 1.4 cm.
== END 2023-12-21 08:51 | disposition home or self-care (01) ==
LOC: RAD 08:52
PROVIDERS: PCP Family Medicine; Visit Provider Obstetrics & Gynecology Reproductive Endocrinology
DX: Z31.7 Encounter for procreative management and counseling for gestational carrier (principal)
CPT/HCPCS: 36415; 76830; 82670; 84144

== ENCOUNTER 2023-12-30 12:54 | Outpatient (CLI) | payer SELFPAY ==
[2023-12-30 16:24] LABS: Progesterone 37.22 ng/mL
== END 2023-12-30 12:55 | disposition home or self-care (01) ==
LOC: LAB 12:58
PROVIDERS: PCP Family Medicine; Visit Provider Obstetrics & Gynecology Reproductive Endocrinology
DX: N97.9 Female infertility, unspecified (principal)
CPT/HCPCS: 36415; 84144

== ENCOUNTER 2024-01-07 06:54 | Outpatient (CLI) | payer SELFPAY | END 2024-01-07 06:55 | disposition home or self-care (01) | LOC: LAB 06:56 | PROVIDERS: PCP Family Medicine; Visit Provider Obstetrics & Gynecology Reproductive Endocrinology | DX: Z31.7 Encounter for procreative management and counseling for gestational carrier (principal) | CPT/HCPCS: 36415; 84702 ==